=== PATIENT | male | born 1995 ===

== ENCOUNTER 2017-10-23 23:53 | Inpatient (IN) | payer MEDICAID ==
[2017-10-24] MEDS ORDERED: Tmp-Smz 800 mg-160 mg DS Tab PO STA (00:49)
[2017-10-24 01:14] LABS: BASO % 0.5 % (0.0-2.0); EOS % 0.5 % (0.0-4.0); HEMOGLOBIN 15.4 g/dL (12.0-18.0); LYMPH # 2.3 K/uL (1.0-4.3); LYMPH % 31.7 % (20.0-40.0); MEAN CELL VOLUME 89.1 fl (80.0-94.0); MEAN CORPUSCULAR HEMOGLOBIN 30.4 pg (27.0-31.0); MEAN CORPUSCULAR HGB CONC 34.2 g/dL (33.0-37.0); MEAN PLATELET VOLUME 7.2 fl (7.2-11.7); MONO # 0.6 K/uL (0.0-0.8); MONO % 8.8 % (0.0-10.0); NEUT # 4.3 K/uL (1.8-7.0); NEUT % 58.5 % (50.0-75.0); RBC 5.06 Mil/uL (4.40-5.90); RED CELL DISTRIBUTION WIDTH 13.5 % (11.5-14.5); WHITE BLOOD COUNT 7.3 K/uL (4.8-10.8)
[2017-10-24] MEDS ORDERED: Tmp-Smz 800 mg-160 mg DS Tab ONE (01:15)
[2017-10-24 01:23] LABS: CALCIUM 9.1 mg/dL (8.4-10.2); GFR NON-AFRICAN AMERICAN > 60
[2017-10-24 01:31] LABS: BLOOD UREA NITROGEN 9 mg/dl (9-20)
--- NOTE | 2017-10-24 02:58 | ED PDOC ---
HPI: Psych/Substance Abuse Time Seen by Provider: 10/24/17 00:16 Chief Complaint (Nursing): Psychiatric Evaluation Chief Complaint (Provider): Psychiatric Evaluation History Per: Patient History/Exam Limitations: no limitations Onset/Duration Of Symptoms: Days Current Symptoms Are (Timing): Still Present Additional Complaint(s): 22 y/o male with a PMHx of depression and heroin abuse for three years presents to the ED for psychiatric evaluation. Patient states he does heroin every day and that his last use was yesterday. Patient is interested in detox and rehab but states he was unable to go to a rehab facility in the past do to having no insurance. Patient reports of feeling helpless and states heroin abuse is affecting his life making him more depressed. Patient states he has been having suicidal thoughts of jumping in front of a train. In addition, patient reports of a red bump on the medial aspect of antecubital fossa of right elbow. Patient reports he injected heroin in that location two days ago. Otherwise: (-) homicidal ideation, (-) nausea, (-) fever, (-) headache, (-) abdominal pain, (- ) fevers, (-) chills, (-) numbness, (-) decreased ROM PMD: No family provider Past Medical History Reviewed: Historical Data, Nursing Documentation, Vital Signs Vital Signs: Last Vital Signs Temp 98.5 F 10/24/17 00:11 Pulse 112 H 10/24/17 00:11 Resp 20 10/24/17 00:11 BP 134/68 10/24/17 00:11 Pulse Ox 100 10/24/17 00:11 - Medical History PMH: Depression - Surgical History Surgical History: No Surg Hx - Family History Family History: States: Unknown Family Hx - Allergies Allergies/Adverse Reactions: Allergies Allergy/AdvReac Type Severity Reaction Status Date / Time No Known Allergies Allergy Verified 10/24/17 00:11 Review of Systems ROS Statement: Except As Marked, All Systems Reviewed And Found Negative Psych: Positive for: Depression, Suicidal ideation, Other (heroin abuse detox) Physical Exam - Reviewed Nursing Documentation Reviewed: Yes Vital Signs Reviewed: Yes - Physical Exam Comments: GENERAL APPEARANCE: Patient is awake, alert, oriented x 3, in no acute distress. SKIN: Warm, dry; (-) cyanosi; 1 cm erythematous, non-tender, non-fluctuant, indurated mass. HEAD: (-) scalp swelling, (-) scalp tenderness. EYES: (-) conjunctival pallor, (-) scleral icterus, (-) nystagmus. ENMT: Mucous membranes moist. Airway patent: (-) stridor. NECK: (-) tenderness, (-) stiffness, (-) lymphadenopathy. HEART AND CARDIOVASCULAR: (-) irregularity; (-) murmur, (-) gallop. CHEST AND RESPIRATORY: (-) rales, (-) rhonchi, (-) wheezes; breath sounds equal. ABDOMEN: Soft, (-) distention, (-) tenderness, (-) guarding. NEURO AND PSYCH: Mental status as above. 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 Pupils equal and reactive; EOMI; (-) facial asymmetry ; tongue and uvula midline. Strength and DTRs symmetric. - Laboratory Results Result Diagrams: 10/24/17 01:07 10/24/17 01:07 - ECG O2 Sat by Pulse Oximetry: 100 (RA) Pulse Ox Interpretation: Normal Medical Decision Making Medical Decision Making: Scribe Attestation: Documented by Fahad Sutherland acting as a scribe for Marissa Li PA-C. Provider Scribe Attestation: All medical record entries made by the Scribe were at my direction and personally dictated by me. I have reviewed the chart and agree that the record accurately reflects my personal performance of the history, physical exam, medical decision making, and the department course for this patient. I have also personally directed, reviewed, and agree with the discharge instructions and disposition. Disposition - Disposition
--- NOTE | 2017-10-24 03:18 | ED PDOC ---
HPI: Psych/Substance Abuse Chief Complaint (Provider): Psychiatric Evaluation History Per: Patient History/Exam Limitations: no limitations Onset/Duration Of Symptoms: Days Current Symptoms Are (Timing): Still Present Additional Complaint(s): 22 y/o male with a PMHx of depression and heroin abuse for three years presents to the ED for psychiatric evaluation. Patient states he does heroin every day and that his last use was yesterday. Patient is interested in detox and rehab but states he was unable to go to a rehab facility in the past do to having no insurance. Patient reports of feeling helpless and states heroin abuse is affecting his life making him more depressed. Patient states he has been having suicidal thoughts of jumping in front of a train. In addition, patient reports of a red bump on the medial aspect of antecubital fossa of right elbow. Patient reports he injected heroin in that location two days ago. Otherwise: (-) homicidal ideation, (-) nausea, (-) fever, (-) headache, (-) abdominal pain, (- ) fevers, (-) chills, (-) numbness, (-) decreased ROM PMD: No family provider <Marissa Li PA-C - Last Filed: 10/24/17 06:05> <En Easton - Last Filed: 10/25/17 04:29> Time Seen by Provider: 10/24/17 00:16 Chief Complaint (Nursing): Psychiatric Evaluation Past Medical History Reviewed: Historical Data, Nursing Documentation, Vital Signs Vital Signs: Last Vital Signs Temp 98.5 F 10/24/17 00:11 Pulse 112 H 10/24/17 00:11 Resp 20 10/24/17 00:11 BP 134/68 10/24/17 00:11 Pulse Ox 100 10/24/17 03:06 - Medical History PMH: Depression - Surgical History Surgical History: No Surg Hx - Family History Family History: States: Unknown Family Hx <Marissa Li PA-C - Last Filed: 10/24/17 06:05> Vital Signs: Last Vital Signs Temp 97.7 F 10/24/17 18:35 Pulse 79 10/24/17 21:36 Resp 18 10/24/17 21:36 BP 110/69 10/24/17 21:36 Pulse Ox 99 10/24/17 11:42 <En Easton - Last Filed: 10/25/17 04:29> - Home Medications Home Medications: Ambulatory Orders Medication Instructions Recorded No Known Home Med 10/24/17 - Allergies Allergies/Adverse Reactions: Allergies Allergy/AdvReac Type Severity Reaction Status Date / Time No Known Allergies Allergy Verified 10/24/17 00:11 Review of Systems ROS Statement: Except As Marked, All Systems Reviewed And Found Negative Psych: Positive for: Depression, Suicidal ideation, Other (heroin detox) <Marissa Li PA-C - Last Filed: 10/24/17 06:05> Physical Exam - Reviewed Nursing Documentation Reviewed: Yes Vital Signs Reviewed: Yes - Physical Exam Comments: GENERAL APPEARANCE: Patient is awake, alert, oriented x 3, in no acute distress. SKIN: Warm, dry; (-) cyanosi. HEAD: (-) scalp swelling, (-) scalp tenderness. EYES: (-) conjunctival pallor, (-) scleral icterus, (-) nystagmus. ENMT: Mucous membranes moist. Airway patent: (-) stridor. NECK: (-) tenderness, (-) stiffness, (-) lymphadenopathy. HEART AND CARDIOVASCULAR: (-) irregularity; (-) murmur, (-) gallop. CHEST AND RESPIRATORY: (-) rales, (-) rhonchi, (-) wheezes; breath sounds equal. ABDOMEN: Soft, (-) distention, (-) tenderness, (-) guarding. EXTREMITIES: (+) 1 cm erythematous, non-tender, non-fluctuant, indurated mass to the antecubital fossa of the R elbow, distal pulse 2+, distal sensation intact. Rest of the extremities : (+) FROM, (-) tenderness. NEURO AND PSYCH: Mental status as above. 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 Pupils equal and reactive; EOMI; (-) facial asymmetry ; tongue and uvula midline. Strength symmetric. <Marissa Li PA-C - Last Filed: 10/24/17 06:05> - Laboratory Results Result Diagrams: 10/24/17 01:07 10/24/17 01:07 - ECG O2 Sat by Pulse Oximetry: 100 (RA) Pulse Ox Interpretation: Normal <Marissa Li PA-C - Last Filed: 10/24/17 06:05> - Laboratory Results Result Diagrams: 10/24/17 01:07 10/24/17 01:07 <En Easton - Last Filed: 10/25/17 04:29> Medical Decision Making Medical Decision Making: Time: 17 Plan: -- Alcohol Serum -- BMP -- Urine Drug Screen -- 1:1 Observation -- Urinalysis -- Keflex 500 mg PO -- Elbow Right 3 Views XR -- Bactrim DS 2 tab PO -- CBC with differentials XR R elbow : no FB, no abnormalities, as read by KAREN Labs reviewed and wnl. 0400 Patient seen and evaluated by [facility]. After crisis evaluation, plan will be for discharge as per Dr. Garcia. Patient was instructed by crisis to go to [facility] and call their detox unit this AM prior to arrival to reserve a bed for rehab. 0530 Patient is requesting possible transfer to [facility], he states that he does not feel comfortable going home as he is afraid he may be enticed to use heroin again today. Crisis called to re-evaluate the patient. Patient seen and e -evaluated by [facility], who will attempt to transfer the patient to [facility]. Scribe Attestation: Documented by Fahad Sutherland acting as a scribe for Marissa Li PA-C. Provider Scribe Attestation: All medical record entries made by the Scribe were at my direction and personally dictated by me. I have reviewed the chart and agree that the record accurately reflects my personal performance of the history, physical exam, medical decision making, and the department course for this patient. I have also personally directed, reviewed, and agree with the discharge instructions and disposition. <Marissa Li PA-C - Last Filed: 10/24/17 06:05> Medical Decision Makin PAtient endorse to Dr. [facility] pending transfer to [facility]. Patient stable. <En Easton - Last Filed: 10/25/17 04:29> Disposition - Patient ED Disposition Is Patient to be Admitted: No Counseled Patient/Family Regarding: Studies Performed, Diagnosis, Need For Followup - Disposition Disposition: Other Institution ([facility]) Disposition Time: 04:00 <Marissa Li PA-C - Last Filed: 10/24/17 06:05> - Disposition Disposition: Transfer of Care Disposition Time: 07:00 Patient Signed Over To: Gurjit [facility] Handoff Comments: pending transfer <En Easton - Last Filed: 10/25/17 04:29> - Clinical Impression Clinical Impression: Heroin abuse, Infection of injection site - Disposition Condition: STABLE - PA / SUPERVIS[employer]ANGING [employer] / Resident Statement /DO has reviewed & agrees with the documentation as recorded. <Marissa Li PA-C - Last Filed: 10/24/17 06:05>
[2017-10-24 07:35] LABS: SQUAMOUS EPITHIAL < 1 /hpf (0-5); URINE BILIRUBIN NEGATIVE (NEGATIVE); URINE BLOOD NEGATIVE (NEGATIVE); URINE CALCIUM OXALATE CRYSTALS FEW /hpf (<OCC); URINE CLARITY CLOUDY (Clear); URINE COLOR YELLOW (YELLOW); URINE GLUCOSE (UA) NEG (Normal); URINE LEUKOCYTE ESTERASE NEG Leu/uL (Negative); URINE PROTEIN 30 mg/dL (NEGATIVE)
[2017-10-24 07:48] LABS: BARBITURATES, UR NEGATIVE (NEGATIVE)
[2017-10-24 08:10] LABS: BENZODIAZEPINES, UR NEGATIVE (NEGATIVE); OPIATES, UR POSITIVE (NEGATIVE); PHENCYCLIDINE, UR NEGATIVE (NEGATIVE)
[2017-10-24 11:42] VITALS: O2SAT 99
--- NOTE | 2017-10-24 11:55 | RAD ---
Date of service: 10/24/2017 PROCEDURE: Radiographs of the right elbow. HISTORY: IVDU, infection, r/o FB COMPARISON: No prior. FINDINGS: BONES: Normal. No fracture. JOINTS: Normal. No osteoarthritis. SOFT TISSUES: Normal. JOINT EFFUSION: None. OTHER FINDINGS: None. IMPRESSION: Unremarkable radiographs of the right elbow.
[2017-10-24] MEDS ORDERED: Alum-Mag Hydrox-Simethicone Susp (30 mL) PO PRN (12:12)
[2017-10-24] MEDS ORDERED: DiphenhydrAMINE 50 mg/ml Inj IM PRN (12:12)
[2017-10-24] MEDS ORDERED: Magnesium Hydroxide Susp 30 ml UD PO PRN (12:12)
--- NOTE | 2017-10-24 13:17 | PCM.PSYCH ---
Initial Psychiatric Evaluation - Initial Psychiatric Evaluation Type of Admission: Voluntary Legal Status: Guardian Chief Complaint (in patient's own words): i need detox Patient's Reaction to Hospitalization: pt is sad History of Present Illness and Precipitating Events: This is a 22 yr old male with h/o opiate abuse and no clear psych history admitted because of suicidal thoughts,Pt claims that he has been doing heroin every day and last done yesterday.and is tired of doing it and it makes him depressed .pt was referred for opiate detox to [facility] but pt wants to be admitted for depression . Current Medications: Active Medications Generic Name Dose Route Start Last Admin Trade Name Freq PRN Reason Stop Dose Admin Acetaminophen 650 mg 10/24/17 12:12 Tylenol 325mg Tab PO Q4 PRN Pain, moderate (4-7) Al Hydrox/Mg Hydrox/Simethicone 30 ml 10/24/17 12:12 Maalox Plus 30 Ml PO Q4 PRN Dyspepsia Clonidine HCl 0.1 mg 10/24/17 17:00 Catapres PO 10/27/17 17:01 Q8 ROSE MARIE Diphenhydramine HCl 50 mg 10/24/17 12:12 Benadryl IM Q6 PRN Extrapyramidal S/S Unable PO Diphenhydramine HCl 50 mg 10/24/17 12:12 Benadryl PO Q6 PRN Extrapyramidal Symptoms Diphenhydramine HCl 50 mg 10/24/17 12:15 Benadryl PO HS PRN Sleep Haloperidol 5 mg 10/24/17 12:12 Haldol PO Q4 PRN Agitation Haloperidol Lactate 5 mg 10/24/17 12:12 Haldol IM Q4 PRN Agitation, Unable to Take PO Ibuprofen 800 mg 10/24/17 12:15 Motrin Tab PO 10/27/17 12:16 Q6 PRN Pain, Mild (1-3) Loperamide HCl 2 mg 10/24/17 12:15 Imodium PO Q4 PRN After Loose Bowel Movement Lorazepam 2 mg 10/24/17 12:12 Ativan IM Q4 PRN Anxiety/Agitation,Unable PO Lorazepam 2 mg 10/24/17 12:12 Ativan PO Q4 PRN Anxiety/Agitation Magnesium Hydroxide 30 ml 10/24/17 12:12 Milk Of Magnesia PO HS PRN Constipation Multivitamins/Minerals 1 tab 10/25/17 09:00 Therapeutic-M Tab PO DAILY ROSE MARIE Temazepam 30 mg 10/24/17 12:15 Restoril PO HS PRN Insomnia Past Psychiatric History - Past Psychiatric History Pertinent Medical Hx (Current Medical&Sleep Prob, Allergies): Allergies Allergy/AdvReac Type Severity Reaction Status Date / Time No Known Allergies Allergy Verified 10/24/17 00:11 No Known Home Med 10/24/17 DSM 5 DX - DSM 5 DSM 5 Diagnosis: depressive disorder not specifed. opiate abuse and dependence - Recommended/Plan of Treatment Treatment Recommendations and Plan of Treatment: Will start pt on opiate detox protocol. will monitir. for withdrawl symptoms. will start pt in zoloft 25 mg daily for depression.
--- NOTE | 2017-10-24 17:32 | PCM.BM ---
<DamionIsrrael - Last Filed: 10/24/17 17:31> Treatment Plan Problems - Problems identified on initial assessmt Suicidal Ideation Date Initiated: 10/24/17 Time Initiated: 17:31 Assessment reference: NA Status: Active Treatment assets and liabiliti Patient Assests: adapts well, cooperative, negotiates basic needs Patient Liabilities: poor support system, substance abuse - Milieu Protocol Maintain good personal hygiene: daily Encourage regular showers, daily Remind patient to perform daily oral care, daily Assist patient to perform ADL's Conduct patient checks and document Observation sheet: Q15 minutes Maintain personal safety: every shift Educate patient to report safety concerns to staff, every shift Monitor environment for contraband/sharps Medication safety: Monitor for expected outcome, potential side effects: every shift, Assess barriers to learning: every shift, Assess readiness for medication education: every shift Milieu Narrative: Will start pt on opiate detox protocol. will monitir. for withdrawl symptoms. will start pt in zoloft 25 mg daily for depression. Family Contact Family involvement: Famliy/SO not involved Family contact: Patient declines to allow family contact at present Discharge/Continuing Care - Treatment Team Participation Patient/Family/SO Statement: Will start pt on opiate detox protocol. will monitir. for withdrawl symptoms. will start pt in zoloft 25 mg daily for depression. <Jeanine Devries - Last Filed: 10/27/17 16:15> Treatment assets and liabiliti Patient Assests: adapts well, cooperative, motivated, resourceful, self-reliant , ADL independent, physically healthy, negotiates basic needs, cognitively intact Patient Liabilities: poor support system, relationship conflicts, substance abuse Family Contact Family involvement: Family/SO is involved Family contact: Patient agrees to contact Family contact comment: Patient has agreed to allow senior grant writer to contact mother prior to patients discharge to provide psychoeducation regarding tx provided on 3NP and aftercare recommended. - Goals for Treatment Patient goals for treatment: Patient to continue stabilization on 3NP through medication management and group/supportive therapy to address sxs of depression , improve sxs of withdrawal and eliminate SI. Patient to be encouraged to attend groups regularly to promote self-awareness, sobriety, and improve insight , compliance, coping skills and self-esteem. Patient to be provided with referral for appropriate level of aftercare to reduce risk of future hospitalizations and ensure safety in the community. Discharge/Continuing Care - Education Needs Education Needs: Family Medication, Family Diagnosis/Disease Process, Family Coping Skills, Family Community resources, Family Aftercare Safety Plan, Patient Medication, Patient Diagnosis/Disease Process, Patient Coping Skills, Patient Community resources, Patient Aftercare Safety Plan - Discharge Discharge Criteria: Tolerates medication w/o severe side effects, Free of Suicidal thoughts, Normal sleep pattern, Ability to care for self, No longer exhibiting s/s of withdrawal, Reduction of target symptoms Discharge to:: Home, With Family (patient reported wanting to request to stay with mother ([place], [place]) temporarily upon d/c) - Treatment Team Participation Patient/Family/SO Statement: 10/27/17 16:18 Patient was brought into tx team this morning to discuss progress on 3NP and aftercare. Patient reported significant improvement in sxs of depression and withdrawal since admission. Pt. expressed motivation for compliance with aftercare and maintained sobriety. Pt. reported wanting to contact mother and request to stay with her temporarily to avoid negative social influences. Patient visible on 3NP and observed socializing appropriately with select peers. Affect is brighter. Pt. easily engaged in discussion regarding precursors to hospitalization, risks of continued substance abuse and benefits of appropriate aftercare. Discussed with Family/SO: No Was Patient/Family/SO present at Treatment Team Meeting: Yes <Shabnam Aguilar - Last Filed: 10/29/17 08:54> - Diagnosis (1) Heroin abuse Status: Acute Interventions: motivational therapy 10/26/17 12:32
[2017-10-25 06:00] LABS: BASO % 0.4 % (0.0-2.0); EOS # 0.2 K/uL (0.0-0.7); HEMOGLOBIN 16.3 g/dL (12.0-18.0); LYMPH # 3.1 K/uL (1.0-4.3); LYMPH % 43.3 % (20.0-40.0); MEAN CELL VOLUME 88.7 fl (80.0-94.0); MEAN CORPUSCULAR HEMOGLOBIN 30.8 pg (27.0-31.0); MEAN CORPUSCULAR HGB CONC 34.7 g/dL (33.0-37.0); MEAN PLATELET VOLUME 6.9 fl (7.2-11.7); MONO # 0.6 K/uL (0.0-0.8); NEUT # 3.2 K/uL (1.8-7.0); NEUT % 44.3 % (50.0-75.0); NRBC % 0.1 % (0.0-0.0); RBC 5.3 Mil/uL (4.40-5.90); RED CELL DISTRIBUTION WIDTH 13.5 % (11.5-14.5); WHITE BLOOD COUNT 7.2 K/uL (4.8-10.8)
[2017-10-25 06:12] LABS: HDL CHOLESTEROL 41 MG/DL (30-70)
[2017-10-25 06:24] LABS: LDL CHOLESTEROL 84 mg/dL (0-129)
[2017-10-25 06:31] LABS: T4 11.8 ug/dl (5.5-11.0)
[2017-10-25 07:03] LABS: ALB/GLOB RATIO 1.2 (1.0-2.1); ALBUMIN 4.4 g/dL (3.5-5.0); ALT/SGPT 111 U/L (21-72); AST/SGOT 66 U/L (17-59); BLOOD UREA NITROGEN 9 mg/dl (9-20); CALCIUM 9.8 mg/dL (8.4-10.2); GFR NON-AFRICAN AMERICAN > 60
[2017-10-25] MEDS: Multivitamin With Minerals Tab PO SCH (08:30)
--- NOTE | 2017-10-25 15:17 | PCM.PYCHPN ---
Psychiatric Progress Note - Psychiatric Progress Note Patient seen today, length of contact: pt evaluated discussed with team chart reviewed Patient Chief Complaint: I want to stop using drugs Problems Identified/Issues Discussed: pt evaluated , presenting with depressed mood and affect, low energy, reported poor sleep and appetite, motivational therapy provided , discussed with pt effect of opiates on current mental status, discussed referral to maintenance treatment program pt has been diagnosed with bipolar, discussed starting seroquel for mood stabilization pt denied any current thoughts of self harm on the unit , denied perceptual disturbances DSM 5 Symptoms Update: substance induced mood disorder opiate use disorder bipolar disorder Medication Change: Yes (discontinue zoloft, start seroquel ) Medical Record Reviewed: Yes Mental Status Examination - Cognitive Function Orientation: Person, Place, Situation Memory: Intact Attention: WNL Concentration: WNL Association: WNL Fund of Knowledge: WN Decription of patient's judgement and insights: partial insight poor judgment - Mood Mood: Depressed, Anxious - Affect Affect: Constricted - Speech Speech: Soft - Formal Thought Process Formal Thought Process: Circumstantial Psychotic Thoughts and Behaviors: pt denied perceptual disturbances, non elicited - Suicidal Ideation Suicidal Ideation: No - Homicidal Ideation Homicidal Ideation: No Goal/Treatment Plan - Goal/Treatment Plan Need for Continued Stay: Severe depression anxiety, Discharge may exacerbated symptoms Progress Toward Problem(s) and Goals/Treatment Plan: start seroquel 25mg bid and 100mg qhs discontinue zoloft continue with clonidine and monitor for withdrawal signs and symptoms motivational, group and supportive therapy
--- NOTE | 2017-10-25 18:31 | CP.PCM.CON ---
History of Present Illness - History of Present Illness History of Present Illness: This is a 22 year old male with past medical history of hepatitis C, substance abuse of marijuana, IV drug abuse with opiates, and cocaine, who presents to the ED concerns about his substance abuse. The patient was subsequently admitted to inpatient psychiatry. Denies any recent illnesses. Patient denies chest pain, shortness of breath, fevers, chills, nausea, vomiting, diarrhea, headache. All of the patient's and/or family's questions were answered at the bedside. Review of Systems - Review of Systems Review of Systems: A 12 point review of systems was conducted and found to be negative other than was was mentioned in the HPI. Past Patient History - Past Medical History & Family History Past Medical History?: Yes Past Family History: Reviewed and not pertinent - Past Social History Smoking Status: Former Smoker Drugs: Cannabis, Cocaine, Opiates - CARDIAC Hx Cardiac Disorders: No - PULMONARY Hx Respiratory Disorders: No Hx Tuberculosis: No - NEUROLOGICAL Hx Neurological Disorder: No HX Cerebrovascular Accident: No Hx Seizures: No - HEENT Hx HEENT Problems: No - RENAL Hx Chronic Kidney Disease: No Hx Kidney Stones: No - ENDOCRINE/METABOLIC Hx Endocrine Disorders: No - HEMATOLOGICAL/ONCOLOGICAL Hx Blood Disorders: No Hx Cancer: No Hx Hepatitis C: Yes Hx Human Immunodeficiency Virus (HIV): No - INTEGUMENTARY Hx Dermatological Problems: No - MUSCULOSKELETAL/RHEUMATOLOGICAL Hx Musculoskeletal Disorders: No - GASTROINTESTINAL Hx Gastrointestinal Disorders: No - GENITOURINARY/GYNECOLOGICAL Hx Genitourinary Disorders: No Hx Sexually Transmitted Disorders: No - PSYCHIATRIC Hx Anxiety: Yes Hx Bipolar Disorder: Yes Hx Depression: Yes Hx Emotional Abuse: No Hx Physical Abuse: No Hx Sexual Abuse: No Hx Substance Use: Yes - SURGICAL HISTORY Hx Surgeries: No - ANESTHESIA Hx Anesthesia: No Meds Allergies/Adverse Reactions: Allergies Allergy/AdvReac Type Severity Reaction Status Date / Time No Known Allergies Allergy Verified 10/24/17 00:11 - Medications Medications: Current Medications Acetaminophen (Tylenol 325mg Tab) 650 mg PO Q4 PRN PRN Reason: Pain, moderate (4-7) Last Admin: 10/25/17 14:06 Dose: 650 mg Al Hydrox/Mg Hydrox/Simethicone (Maalox Plus 30 Ml) 30 ml PO Q4 PRN PRN Reason: Dyspepsia Cephalexin Monohydrate (Keflex) 500 mg PO Q8H [place] PRN Reason: Protocol Clonidine HCl (Catapres) 0.1 mg PO Q8 [facility] Stop: 10/27/17 17:01 Last Admin: 10/25/17 17:14 Dose: 0.1 mg Diphenhydramine HCl (Benadryl) 50 mg IM Q6 PRN PRN Reason: Extrapyramidal S/S Unable PO Diphenhydramine HCl (Benadryl) 50 mg PO Q6 PRN PRN Reason: Extrapyramidal Symptoms Diphenhydramine HCl (Benadryl) 50 mg PO HS PRN PRN Reason: Sleep Last Admin: 10/24/17 21:14 Dose: 50 mg Haloperidol (Haldol) 5 mg PO Q4 PRN PRN Reason: Agitation Haloperidol Lactate (Haldol) 5 mg IM Q4 PRN PRN Reason: Agitation, Unable to Take PO Hydroxyzine Pamoate (Vistaril) 50 mg PO Q8 PRN PRN Reason: Anxiety Ibuprofen (Motrin Tab) 800 mg PO Q6 PRN PRN Reason: Pain, Mild (1-3) Stop: 10/27/17 12:16 Last Admin: 10/25/17 17:15 Dose: 800 mg Loperamide HCl (Imodium) 2 mg PO Q4 PRN PRN Reason: After Loose Bowel Movement Magnesium Hydroxide (Milk Of Magnesia) 30 ml PO HS PRN PRN Reason: Constipation Multivitamins/Minerals (Therapeutic-M Tab) 1 tab PO DAILY [facility] Last Admin: 10/25/17 08:30 Dose: 1 tab Quetiapine Fumarate (Seroquel) 100 mg PO HS [facility] Quetiapine Fumarate (Seroquel) 25 mg PO BID [facility] Last Admin: 10/25/17 17:14 Dose: 25 mg Physical Exam - Additional Findings Additional findings: Physical exam: Constitutional- cooperative, awake, alert Head- NCAT, PERRL Eye- PERRL, EOMI ENT- normal exam, MMM. Neck- normal inspection, supple, no JVD Respiratory- CTAB, no wheezes rales rhonchi Cardiovascular- RRR, +S1, +S2 no MRG GI/Abdominal- normal bowel sounds, soft, no mass, no hsm Skin- warm, dry Extremities Exam- +1 cm of erythema, induration, nonfluctuant area of the right antecubital fossa. normal capillary refill, normal inspection Neurological Exam- alert, awake, oriented Psych- normal mood, normal affect Results - Vital Signs Recent Vital Signs: Last Vital Signs Temp 97.9 F 10/25/17 16:18 Pulse 80 10/25/17 17:14 Resp 18 10/25/17 16:18 BP 140/76 10/25/17 17:14 Pulse Ox 99 10/24/17 11:42 - Labs Result Diagrams: 10/25/17 05:53 10/25/17 05:53 Labs: Laboratory Results - last 24 hr 10/25/17 10/25/17 10/25/17 05:53 05:53 05:53 WBC 7.2 RBC 5.30 Hgb 16.3 Hct 47.0 MCV 88.7 MCH 30.8 MCHC 34.7 RDW 13.5 Plt Count 294 MPV 6.9 L Neut % (Auto) 44.3 L Lymph % (Auto) 43.3 H Centre % (Auto) 9.0 Eos % (Auto) 3.0 Baso % (Auto) 0.4 Neut # (Auto) 3.2 Lymph # (Auto) 3.1 Centre # (Auto) 0.6 Eos # (Auto) 0.2 Baso # (Auto) 0.0 Sodium 142 Potassium 4.2 Chloride 103 Carbon Dioxide 27 Anion Gap 16 BUN 9 Creatinine 1.0 Est GFR ( Amer) > 60 Est GFR (Non-Af Amer) > 60 Random Glucose 97 Hemoglobin A1c Calcium 9.8 Total Bilirubin 0.6 AST 66 H ALT 111 H Alkaline Phosphatase 79 Total Protein 8.1 Albumin 4.4 Globulin 3.7 Albumin/Globulin Ratio 1.2 Triglycerides 96 Cholesterol 154 LDL Cholesterol Direct 84 HDL Cholesterol 41 Thyroxine (T4) 11.8 H TSH 3rd Generation 0.32 L 10/25/17 05:53 WBC RBC Hgb Hct MCV MCH MCHC RDW Plt Count MPV Neut % (Auto) Lymph % (Auto) Centre % (Auto) Eos % (Auto) Baso % (Auto) Neut # (Auto) Lymph # (Auto) Centre # (Auto) Eos # (Auto) Baso # (Auto) Sodium Potassium Chloride Carbon Dioxide Anion Gap BUN Creatinine Est GFR ( Amer) Est GFR (Non-Af Amer) Random Glucose Hemoglobin A1c 5.4 Calcium Total Bilirubin AST ALT Alkaline Phosphatase Total Protein Albumin Globulin Albumin/Globulin Ratio Triglycerides Cholesterol LDL Cholesterol Direct HDL Cholesterol Thyroxine (T4) TSH 3rd Generation Assessment & Plan - Assessment and Plan (Free Text) Plan: This is a 22 year old male with past medical history of hepatitis C, substance abuse of marijuana, IV drug abuse with opiates, and cocaine, who presents to the ED concerns about his substance abuse. The patient was subsequently admitted to inpatient psychiatry. Denies any recent illnesses. Patient denies chest pain, shortness of breath, fevers, chills, nausea, vomiting, diarrhea, headache. All of the patient's and/or family's questions were answered at the bedside. 1) Mild hyperthyroidism - Monitor for now as T4 elevation is mild and patient has no significant BP elevation or tachycardia - Patient should have follow up with linotype machinist after discharge 2) Polysubstance abuse with IV opioids, cocaine, and marijuana - patient not requiring medications for withdrawal at this time - further management as per psychiatry 3) Cellulitis of heroin injection site, right antecubital fossa - Keflex 500 mg po q 8 hours for 7 days
[2017-10-26] MEDS: Multivitamin With Minerals Tab PO SCH (09:00)
--- NOTE | 2017-10-26 12:39 | PCM.PYCHPN ---
Psychiatric Progress Note - Psychiatric Progress Note Patient seen today, length of contact: pt evaluated discussed with team chart reviewed Patient Chief Complaint: I want to do outpatient rehab Problems Identified/Issues Discussed: pt evaluated ,continues to report poor sleep with early insomnia, low energy, depressed mood and affect, motivational therapy provided inreference to effect of opiate use on current mental status , discussed possible referral to maintenance treatment clinic, discussed increasing dose of seroquel for depression and mood stabilization, encouraged pt to attend groups pt denied any current thoughts of self harm on the unit , denied perceptual disturbances DSM 5 Symptoms Update: substance induced mood disorder opiate abuse continuous Medication Change: Yes (increase seroquel) Medical Record Reviewed: Yes Mental Status Examination - Cognitive Function Orientation: Person, Place, Situation Memory: Intact Attention: WNL Concentration: WNL Association: WNL Fund of Knowledge: WN Decription of patient's judgement and insights: partial insight poor judgment - Mood Mood: Depressed, Anxious - Affect Affect: Constricted - Speech Speech: Soft - Formal Thought Process Formal Thought Process: Circumstantial Psychotic Thoughts and Behaviors: pt denied perceptual disturbances, non elicited - Suicidal Ideation Suicidal Ideation: No - Homicidal Ideation Homicidal Ideation: No Goal/Treatment Plan - Goal/Treatment Plan Need for Continued Stay: Severe depression anxiety, Discharge may exacerbated symptoms Progress Toward Problem(s) and Goals/Treatment Plan: seroquel 25mg bid and 200mg qhs continue with clonidine prn for opiate withdrawal signs and symptoms motivational, group and supportive therapy
[2017-10-27] MEDS: Multivitamin With Minerals Tab PO SCH (09:08)
--- NOTE | 2017-10-27 15:40 | PCM.PYCHPN ---
Psychiatric Progress Note - Psychiatric Progress Note Patient seen today, length of contact: pt evaluated discussed with team chart reviewed Patient Chief Complaint: I still have trouble sleeping Problems Identified/Issues Discussed: pt evaluated ,continues to report poor sleep with early insomnia, mood less depressed, more visible on the unit, motivated to attend outpatient rehab, discussed possibility of being started on vivitrol injection for craving reductions pt denied any current thoughts of self harm on the unit , denied perceptual disturbances DSM 5 Symptoms Update: substance induced mood disorder opiate abuse Medication Change: Yes (increase seroquel) Medical Record Reviewed: Yes Mental Status Examination - Cognitive Function Orientation: Person, Place, Situation Memory: Intact Attention: WNL Concentration: WNL Association: WNL Fund of Knowledge: WNL Decription of patient's judgement and insights: partial insight poor judgment - Mood Mood: Depressed, Anxious - Affect Affect: Constricted - Speech Speech: Soft - Formal Thought Process Formal Thought Process: Circumstantial Psychotic Thoughts and Behaviors: pt denied perceptual disturbances, non elicited - Suicidal Ideation Suicidal Ideation: No - Homicidal Ideation Homicidal Ideation: No Goal/Treatment Plan - Goal/Treatment Plan Need for Continued Stay: Severe depression anxiety, Discharge may exacerbated symptoms Progress Toward Problem(s) and Goals/Treatment Plan: seroquel 25mg bid and 300mg qhs discontinue clonidine motivational, group and supportive therapy
[2017-10-28] MEDS: Multivitamin With Minerals Tab PO SCH (08:28)
--- NOTE | 2017-10-28 15:17 | PCM.PYCHPN ---
Psychiatric Progress Note - Psychiatric Progress Note Patient seen today, length of contact: pt evaluated discussed with team chart reviewed Patient Chief Complaint: I feel better with increasing seroquel Problems Identified/Issues Discussed: pt evaluated ,reported improved sleep , mood less depressed, more visible on the unit, motivated to attend outpatient rehab, discussed possibility of being started on vivitrol injection for craving reductions pt denied any current thoughts of self harm on the unit , denied perceptual disturbances DSM 5 Symptoms Update: substance induced mood disorder Medication Change: No (increase seroquel) Medical Record Reviewed: Yes Mental Status Examination - Cognitive Function Orientation: Person, Place, Situation Memory: Intact Attention: WNL Concentration: WNL Association: WNL Fund of Knowledge: WNL Decription of patient's judgement and insights: partial insight poor judgment - Mood Mood: Depressed, Anxious - Affect Affect: Constricted - Speech Speech: Soft - Formal Thought Process Formal Thought Process: Circumstantial Psychotic Thoughts and Behaviors: pt denied perceptual disturbances, non elicited - Suicidal Ideation Suicidal Ideation: No - Homicidal Ideation Homicidal Ideation: No Goal/Treatment Plan - Goal/Treatment Plan Need for Continued Stay: Severe depression anxiety, Discharge may exacerbated symptoms Progress Toward Problem(s) and Goals/Treatment Plan: seroquel 25mg bid and 300mg qhs discontinue clonidine motivational, group and supportive therapy
[2017-10-29 08:41] VITALS: BP 118/88; PULSE 129; RESP 20; TEMP 97.7
[2017-10-29] MEDS: Multivitamin With Minerals Tab PO SCH (09:21)
--- NOTE | 2017-10-29 13:34 | PCM.PYCHDC ---
Mental Status Examination - Mental Status Examination Orientation: Person, Place, Situation Memory: Intact Mood: Neutral Affect: Broad Speech: Appropriate Attention: WNL Concentration: WNL Association: WNL Fund of Knowledge: WNL Formal Thought Process: No Impairment Description of patient's judgement and insight: partial insight poor judgment Psychotic Thoughts and Behaviors: pt denied perceptual disturbances, non elicited Suicidal Ideation: No Current Homicidal Ideation?: No Discharge Summary - Discharge Note Reason for Hospitalization: This is a 22 yr old male with h/o opiate abuse and no clear psych history admitted because of suicidal thoughts,Pt claims that he has been doing heroin every day and last done yesterday.and is tired of doing it and it makes him depressed .pt was referred for opiate detox to [facility] but pt wants to be admitted for depression . Consultations:: List each consultation separately and include: 1. Reason for request. 2. Findings. 3. Follow-up Summary of Hospital Course include:: 1. Description of specific treatment plan utilized for patients during their course of treatmen. 2. Summarize the time- course for resolution of acute symptoms and/or regressed behaviors. 3. Describe issues identified and worked on during hospitalization. 4. Describe medication utilized. 5. Describe medical problems identified and treated. 6. Reassessment of suicide risk Summary of Hospital Course: pt on admission was started on clonidine protocol and monitored for symptoms and signs of opiate withdrawal pt was also started on seroquel for depression and mood stabilization, it was uptitrated to 25mg bid and 300 mg qhs CBT, motivational and group therapy provided pt was compliant with treatment, attended groups, no reported side effects of medications on discharge mental status was stable, pt denied any current suicidal or homicidal ideation pt was advised about risk of relapse and accidental overdose pt was referred by social welfare research worker to outpatient [facility], [facility] - Diagnosis (1) Heroin abuse Status: Acute - Final Diagnosis (DSM 5) Condition upon Discharge: STABLE DSM 5: substance induced mood disorder with depressive features opiate abuse continuous Disposition: HOME/ ROUTINE Follow-up Treatment Plan: [facility] Prescriptions/Medication Reconciliation: QUEtiapine [Seroquel] 25 mg PO BID 30 Days #60 tab QUEtiapine [SEROquel] 300 mg PO HS 30 Days #30 tab - Smoking Cessation Smoking Cessation Medication prescribed: No - Antipsychotic Medications Pt discharged on 2 or more routine antipsychotic medications: No
== END 2017-10-29 12:30 | disposition home or self-care (01) | DRG 744 ==
LOC: H.ER 23:53 → H.ERHOLD 10-24 10:31 → H.PSYCH 10-24 12:05
PROVIDERS: ADMIT Psychiatry & Neurology Psychiatry; ATTEND Psychiatry & Neurology Psychiatry
PROC: HZ52ZZZ Individual Psychotherapy for Substance Abuse Treatment, Cognitive-Behavioral (ICD-10-PCS; principal; 2017-10-24)
PROC: GZHZZZZ Group Psychotherapy (ICD-10-PCS; 2017-10-24)
PROC: GZ58ZZZ Individual Psychotherapy, Cognitive-Behavioral (ICD-10-PCS; 2017-10-24)
DX: F11.24 Opioid dependence with opioid-induced mood disorder (principal); L03.113 Cellulitis of right upper limb; E05.80 Other thyrotoxicosis without thyrotoxic crisis or storm; R45.851 Suicidal ideations; F14.10 Cocaine abuse, uncomplicated; F31.9 Bipolar disorder, unspecified; G47.00 Insomnia, unspecified; F41.9 Anxiety disorder, unspecified; Z86.19 Personal history of other infectious and parasitic diseases; Z87.891 Personal history of nicotine dependence